=== PATIENT | female | born 1970 | race Caucasian/White ===

== ENCOUNTER → 2016-12-31 | Outpatient (CLI) | payer BC ==
[2016-12-31 08:59] LABS: HEMATOCRIT 45.2 % (37.0-47.0); HEMOGLOBIN 15.2 g/dL (12.0-16.0); MEAN CORPUSCULAR HEMOGLOBIN 29.7 PG (27-31); MEAN CORPUSCULAR HGB CONC 33.6 g/dL (33-37); MEAN CORPUSCULAR VOLUME 88.5 FL (81-99); MEAN PLATELET VOLUME 10.4 FL (7.4-12.2); RED BLOOD COUNT 5.11 10^6/uL (4.20-5.40)
[2016-12-31 09:24] LABS: BLOOD UREA NITROGEN 12 mg/dL (7-22); BUN/CREATININE RATIO 13.33 (6-20); CALCIUM 9.2 mg/dL (8.7-10.7); EST GLOMERULAR FILTRATION > 60 (>60 ml/min/1.73m(2)); HDL CHOLESTEROL 35 mg/dL (40-150); SERUM ALBUMIN 4.1 g/dL (3.5-4.8); SERUM CHOLESTEROL 154 mg/dL (120-200)
--- NOTE | 2016-12-31 09:27 | EKG ---
[address] [address] Measurements Intervals [place] Rate: 60 P: 73 MN: 185 QRS: 20 QRSD: 99 T: 61 QT: 430 QTc: 432 Interpretive Statements SINUS RHYTHM No previous ECG available for comparison Electronically Signed On 12-31-16 10:34:42 MDT by Stoney Lazo [email or web address]
[2016-12-31 09:43] LABS: VITAMIN D 25-HYDROXY 26.8 NG/ML (30-100)
[2017-01-03 13:09] LABS: VITAMIN B1 WHOLE BLOOD 154 nmol/L (70-180)
== END ==
LOC: LAB 08:20
PROVIDERS: ATTEND Surgery
DX: E66.01 Morbid (severe) obesity due to excess calories (principal)
CPT/HCPCS: 36415; 80053; 80061; 82306; 82607; 83540; 83550; 83970; 84134; 84425; 85027; 93005; 93010

== ENCOUNTER → 2017-01-15 | Outpatient (CLI) | payer BC ==
[2017-01-15 11:31] LABS: ABG BASE EXCESS -3 MMOL/L (-2-2); ABG OXYGEN SATURATION 93 % (90-100); ABG PCO2 32 MMHG (34-38); ABG PH 7.43 (7.35-7.45); ABG PO2 63 MMHG (65-75); ALLEN TEST Y; COLLECTION SITE R RADIAL
== END ==
LOC: RT 11:03
PROVIDERS: ATTEND Surgery
DX: G47.9 Sleep disorder, unspecified (principal)
CPT/HCPCS: 36600; 82803